=== PATIENT | female | born 1965 | race Caucasian/White ===

== ENCOUNTER 2017-07-18 05:39 | Day surgery (SDC) | payer OTHER ==
[~2017-07-18] VITALS: Ht 167.6 cm; Wt 92.4 kg
[2017-07-18 06:12] VITALS: BP 110/70; PULSE 80; TEMP 98.1
[2017-07-18] MEDS ORDERED: SYNTHROID 0.0.025 MG PO (06:21)
[2017-07-18] MEDS ORDERED: OYSTER SHELL C500 M4 PO (06:22)
[2017-07-18] MEDS ORDERED: VITAMINE200 PO (06:23)
[2017-07-18] MEDS ORDERED: VITAMIN B-625 MG PO (06:23)
[2017-07-18] MEDS ORDERED: PERCOCET 325 MG1 TA2 PO (06:24)
[2017-07-18] MEDS ORDERED: OMEGA-3 1000 MG1 CAP PO (06:25)
[2017-07-18] MEDS ORDERED: CO Q-1010 M1 PO (06:25)
[2017-07-18] MEDS ORDERED: B-12 250 MCG PO (06:27)
[2017-07-18 07:43] VITALS: BP 101/65; PULSE 62; TEMP 98.3
[2017-07-18 10:00] VITALS: BP 101/72; PULSE 81
[2017-07-18 10:15] VITALS: BP 102/68; PULSE 60
== END 2017-07-18 12:49 | disposition home or self-care (01) ==
LOC: SDCO 05:39
DX: N36.42 Intrinsic sphincter deficiency (ISD) (principal); N39.3 Stress incontinence (female) (male); N39.41 Urge incontinence; E03.9 Hypothyroidism, unspecified; Z80.9 Family history of malignant neoplasm, unspecified
CPT/HCPCS: C1767; C1778; C1787; C1894; J0690; J2704; J3010; J7120